=== PATIENT | male | born 2000 | race Caucasian/White ===

== ENCOUNTER 2019-02-18 17:35 | Emergency (ER) | payer BC ==
[~2019-02-18] VITALS: Ht 180.3 cm; Wt 60.0 kg
[2019-02-18 17:44] VITALS: Ht 180.3 cm; Wt 60.0 kg
[2019-02-18] MEDS ORDERED: KETOROLAC 30 MG INJ IV STA (19:09)
[2019-02-18 19:54] VITALS: BP 114/70; PULSE 84; RESP 18
== END 2019-02-18 19:58 | disposition home or self-care (01) ==
LOC: E/R 17:35
DX: J93.81 Chronic pneumothorax (principal)
CPT/HCPCS: 71250; 96374; J1885; Z7502